=== PATIENT | female | born 1975 | race American Indian/Alaskan Native ===

== ENCOUNTER 2024-02-02 11:50 | Emergency (ER) | payer MEDICAID, SELFPAY ==
[2024-02-02 11:57] VITALS: BP 151/98; PULSE 113; RESP 19; TEMP 37.3; O2SAT 97; BMI 38.7
--- NOTE | 2024-02-02 12:10 | EDNOTE_ITS ---
<Statement entered by Inés Ayoub MD - 02/03/24 11:46> As co-signing physician, I was present and available for consult prn. I concur with the plan and care as documented by the midlevel provider. ED General RME/HPI General Chief complaint: Skin/Abscess/Foreign Body Stated complaint: left thumb swelling/pain/discoloration x3 days Time Seen by Provider: 02/02/24 12:08 Arrival date/time: 02/02/24 11:50 CC: Left thumb pain, pus HPI ongoing for the past 3 to 4 days patient states he had a crack in the nail and then covered it with Dermabond, resulting in redness tenderness to the tip of the thumb that extended down to the pad of the thumb. No prior history of similar events has no medications no allergies not in any acute distress. Related Data Previous Rx's ?Medication ?Instructions ?Recorded acetaminophen 500 mg tablet 500 mg PO Q6HR PRN PAIN #14 tabs 06/03/15 (Tylenol Extra Strength) ibuprofen 800 mg tablet (IBU) 800 mg PO Q8H PRN pain #30 tabs 12/23/20 tramadol 50 mg tablet (Ultram) 50 mg PO BID PRN pain #14 tabs 12/23/20 sulfamethoxazole 800 1 tab PO BID 7 days #14 tabs 02/02/24 mg-trimethoprim 160 mg tablet (Bactrim DS) Allergies Allergy/AdvReac Type Severity Reaction Status Date / Time No Known Allergies Allergy Verified 02/02/24 11:51 Review of Systems Review of Systems Narrative Review of Systems: GEN: No fever, no chills, no weight loss EYES: No discharge, no visual changes, no pain HEENT: No ear pain, no congestion, no sore throat PULM: No shortness of breath, no cough, no congestion CV: No chest pain, no dyspnea on exertion, no palpitations GI: No nausea, no vomiting, no diarrhea, no pain, no constipation : No frequency, no urgency, no dysuria MUSC/SKEL: No joint pain, no back pain SKIN: + Abscess, no rash PSYCH: No hallucinations, no depression HEME/LYMPH: No easy bleeding or bruising tendencies NEURO: No weakness, no headache Past Medical History Social History SMOKING STATUS: Never smoker ED Exam Narrative Physical exam: [General: Obese not in any acute distress Head normocephalic HEENT: Within acceptable limits Neck is supple nontender Chest equal chest rise nontender to palpation Respiratory: Clear to auscultation no wheezes crackles or rubs CV: Rate rhythm is regular no murmurs rubs or clicks Abdomen is distended secondary to body habitus soft nontender no masses positive bowel sounds all 4 quadrants Back: No CVA tenderness no spinous process tenderness from cervical spine thoracic and lumbar spine Skin: Left hand: First digit: Entire pad is covered with an abscess that is similar to a paronychia, no nail involvement no cuticle involvement this is isolated to the pad of the thumb. Otherwise skin is intact no petechiae rash induration ulceration or crepitus Extremities: Moving all extremity against resistance cap refill less than 2 seconds neurosensory intact Neuro: Awake alert oriented x3 Glascow coma 15 no focal deficits] Course Quality Measures VTE prophylaxis Vital Signs Vital signs: Vital Signs Temperature 99.1 F 02/02/24 11:57 Pulse Rate 113 H 02/02/24 11:57 Respiratory Rate 19 02/02/24 11:57 Blood Pressure 151/98 H 02/02/24 11:57 Pulse Oximetry (%) 97 02/02/24 11:57 Oxygen Delivery Method Room Air 02/02/24 11:57 Procedures -ED Procedure Comment I&D of the left thumb anesthesia 1% lidocaine epinephrine 6 mL injected to the base of the thumb to form a digital block. Then using a #11 scalpel a 1 cm vertical incision made at the distal portion of the pad, serous sanguinous and exudative material expressed. Patient tolerated procedure well bacitracin and a bulky dressing applied. [facility] Patient data External records reviewed:: [facility] previous records Clinical information provided by:: patient Social determinants that could affect healthcare access:: none Patient has the following chronic illnesses:: None How is presenting disease/condition affected by chronic disease/condition?: uneffected by Evaluation data The following diagnostics were reviewed and interpreted by me:: lab results and radiology exam(s) Lab and/or radiology exams considered but not ordered:: None Interpretation Summary: Thumb abscess Medications Medications considered but not ordered:: None Medication administrations:: None Consultations Consultation(s) initiated? (list below): No Diagnosis Differential Diagnosis ED Complaint MDM: Paronychia, abscess, cellulitis Most likely diagnosis given after review of the tests above:: Thumb abscess Admission Indicated Admission indicated?: not indicated Explain why admission is indicated or not indicated:: Stable for outpatient follow-up Admission Request Was there a request for admission?: No Disposition Plan Disposition Plan: Discharge Discharge Attestation Discharge Attestation: The patient and all family members were given an opportunity to ask questions and understood the discharge instructions. Discharge instructions specifically effects, indications for sooner follow up or return to the emergency department, and the expected course of current diagnosis. Patient condition: Stable Medical Decision Making Differential Diagnosis Differential Diagnosis: Paronychia, abscess, cellulitis Discharge Plan Plan Patient Disposition: HOME (Self Care) Patient condition on transfer: Stable Prescriptions/Referrals Prescriptions/Med Rec: New sulfamethoxazole-trimethoprim [Bactrim DS] 800-160 mg tablet 1 tab PO BID 7 Days Qty: 14 0RF No Action acetaminophen [Tylenol Extra Strength] 500 MG tablet 500 mg PO Q6HR PRN (Reason: PAIN) Qty: 14 0RF ibuprofen [IBU] 800 mg tablet 800 mg PO Q8H PRN (Reason: pain) Qty: 30 0RF tramadol [Ultram] 50 mg tablet 50 mg PO BID PRN (Reason: pain) Qty: 14 0RF Problem List Clinical Impression: Abscess of left thumb Patient/Caregiver Discharge Instructions Education Materials: ED Abscess, Incision And Drainage Additional Instructions: Keep the site clean and dry change dressing once a day do not submerge this in any kind of water do not drink alcohol while taking the medications take all the medications until completely gone if there is a worsening of symptoms return the emergency room immediately for further evaluation. Use ibuprofen or Tylenol for pain. Print Language: Indian Stand Alone Forms: Marii Award Info., Work/School Release, Patient Portal Info Letter LETY/ELLEN Supervising Physician LETY/ELLEN Supervising Physician: Melchor Frey ENP
== END 2024-02-02 12:20 | disposition home or self-care (01) ==
LOC: SERX 12:19
PROVIDERS: Emergency Provider Emergency Medicine; PCP Physician Assistant
DX: L02.512 Cutaneous abscess of left hand (principal)
CPT/HCPCS: 26010; 99283